=== PATIENT | male | born 1980 ===

== ENCOUNTER 2019-05-30 13:38 | Outpatient (CLI) | payer MEDICARE, OTHER ==
--- NOTE | 2019-05-30 11:25 | PET ---
Radionucleotide PET scan for dimension HISTORY: Alzheimer's disease with early onset. Intracranial injury. FINDINGS: Symmetric and physiologic uptake throughout the cortex of each cerebral and cerebellar maureen sphere. Normal briseno matter/white matter differentiation. No focal areas of diminished uptake evident. IMPRESSION: Normal exam.
== END 2019-05-30 13:39 | disposition home or self-care (01) ==
LOC: PET 13:38
PROVIDERS: ATTEND Psychiatry & Neurology Neurology
DX: S06.890A Other specified intracranial injury without loss of consciousness, initial encounter (principal); G30.0 Alzheimer's disease with early onset
CPT/HCPCS: 78608; A9552